=== PATIENT | male | born 1975 | race Two or more races ===

== ENCOUNTER 2017-10-28 14:05 | Emergency (ER) | payer MEDICAID ==
[~2017-10-28] VITALS: Ht 165.1 cm; Wt 68.0 kg
[~2017-10-28 14:05] MED LIST: FUROSEMIDE20 M1 ORAL; INSULIN PUMP
[2017-10-28 14:11] VITALS: BP 110/73
--- NOTE | 2017-10-28 14:14 | Emergency Room Report ---
History of Present Illness General Chief Complaint: Dyspnea/Respdistress Source: EMS Present Illness HPI Patient's 42-year-old male brought in by EMS after increased difficulty breathing. Patient recently been seen and treated at [facility] for fluid in his lungs as well as his abdomen. The patient was noted to have some evidence of infection and was currently started on some medication for pulmonary hypertension. Patient has had a pump placed the patient does not recall what medications he is currently taking. The patient presented for increased dizziness. Allergies: Coded Allergies: No Known Allergies (Unverified , 10/28/17) Patient History Reviewed Nursing Documentation: PMH: Agreed; PSxH: Agreed Nursing Documentation-PMH Past Medical History: No History, Except For Hx Cardiac Problems: Yes Hx Hypertension: Yes Hx Diabetes: Yes - 1 Review of Systems All Other Systems: negative except mentioned in HPI Physical Exam Vital Signs Date Time Temp Pulse Resp B/P (MAP) Pulse Ox O2 Delivery O2 Flow Rate FiO2 10/28/17 14:01 120 20 105/69 99 Room Air Sp02 EP Interpretation: reviewed, normal General Appearance: normal inspection, well appearing, no apparent distress, alert, Chronically Ill Head: atraumatic ENT: normal ENT inspection, hearing grossly normal, normal voice Neck: normal inspection, full range of motion, supple, no bony tend Respiratory: normal inspection, no respiratory distress, no retraction, no wheezing Cardiovascular #1: no edema, tachycardia Gastrointestinal: normal inspection, normal bowel sounds, non tender, soft, no guarding, no hernia Genitourinary: no CVA tenderness Musculoskeletal: normal inspection, back normal, normal range of motion Neurologic: normal inspection, alert, oriented x3, responsive, purchasing agent III-XII nml as tested, speech normal Psychiatric: normal inspection, judgement/insight normal, mood/affect normal Skin: normal inspection, normal color, no rash Medical Decision Making Diagnostic Impression: Primary Impression: Dyspnea Additional Impression: Pulmonary hypertension ER Course Patient presented for shortness of breath. Differential included but was not limited to anemia, pneumonia, pneumothorax, myocardial infarction, pericardial effusion, congestive heart failure, acidosis. Because of complexity of patient' s case laboratory testing and imaging studies were ordered.Patient was noted to have cardiomegaly on chest x-ray. The patient was noted to have adequate oxygen saturation. His blood pressure. Be normal. Patient was noted to be somewhat tachycardic. The patient's niece subsequently presented to the hospital and stated the patient was taking Viagra as well as chief other medications for pulmonary hypertension in addition to diuretics. The patient stated that he felt better wanted to leave the hospital. The patient was advised risk benefits alternatives of leaving AGAINST MEDICAL ADVICE and he indicated understanding and all questions are answered patient still continued want to leave and signed AGAINST MEDICAL ADVICE. Despite risks including but not limited to disability and worsening of current lifestyle. The patient is advised that he was still tachycardic. He was advised that he could return at any time Labs Test 10/28/17 14:41 10/28/17 14:52 White Blood Count 7.7 K/UL (4.8-10.8) Red Blood Count 4.40 M/UL (4.70-6.10) Hemoglobin 13.4 G/DL (14.2-18.0) Hematocrit 40.6 % (42.0-52.0) Mean Corpuscular Volume 92 FL (80-99) Mean Corpuscular Hemoglobin 30.4 PG (27.0-31.0) Mean Corpuscular Hemoglobin Concent 32.9 G/DL (32.0-36.0) Red Cell Distribution Width 15.3 % (11.6-14.8) Platelet Count 211 K/UL (150-450) Mean Platelet Volume 8.2 FL (6.5-10.1) Neutrophils (%) (Auto) 77.1 % (45.0-75.0) Lymphocytes (%) (Auto) 12.7 % (20.0-45.0) Monocytes (%) (Auto) 6.9 % (1.0-10.0) Eosinophils (%) (Auto) 2.0 % (0.0-3.0) Basophils (%) (Auto) 1.3 % (0.0-2.0) Urine Color Pale yellow Urine Appearance Clear Urine pH 8 (4.5-8.0) Urine Specific [place] 1.010 (1.005-1.035) Urine Protein 3+ (NEGATIVE) Urine Glucose (UA) Negative (NEGATIVE) Urine Ketones Negative (NEGATIVE) Urine Occult Blood 2+ (NEGATIVE) Urine Nitrite Negative (NEGATIVE) Urine Bilirubin Negative (NEGATIVE) Urine Urobilinogen Normal MG/DL (0.0-1.0) Urine Leukocyte Esterase Negative (NEGATIVE) Urine RBC 0-2 /HPF (0 - 0) Urine WBC 0 /HPF (0 - 0) Urine Squamous Epithelial Cells None /LPF (NONE/OCC) Urine Bacteria Few /HPF (NONE) Sodium Level 139 MMOL/L (136-145) Potassium Level 3.3 MMOL/L (3.5-5.1) Chloride Level 101 MMOL/L (98-107) Carbon Dioxide Level 27 MMOL/L (21-32) Anion Gap 12 mmol/L (5-15) Blood Urea Nitrogen 19 mg/dL (7-18) Creatinine 1.2 MG/DL (0.55-1.30) Estimat Glomerular Filtration Rate > 60 mL/min (>60) Glucose Level 136 MG/DL (74-106) Lactic Acid Level 2.50 mmol/L (0.66-2.22) Calcium Level 8.7 MG/DL (8.5-10.1) Phosphorus Level 4.7 MG/DL (2.5-4.9) Magnesium Level 2.2 MG/DL (1.8-2.4) Total Bilirubin 0.9 MG/DL (0.2-1.0) Aspartate Amino Transf (AST/SGOT) 19 U/L (15-37) Alanine Aminotransferase (ALT/SGPT) 19 U/L (12-78) Alkaline Phosphatase 109 U/L (46-116) Total Creatine Kinase 47 U/L (26-308) Creatine Kinase MB 0.7 NG/ML (0.0-3.6) Creatine Kinase MB Relative Index 1.4 Troponin I 0.010 ng/mL (0.000-0.056) Pro-B-Type Natriuretic Peptide 1942 pg/mL (0-125) Total Protein 8.9 G/DL (6.4-8.2) Albumin 3.6 G/DL (3.4-5.0) Globulin 5.3 g/dL Albumin/Globulin Ratio 0.7 (1.0-2.7) Arterial Blood pH 7.440 (7.350-7.450) Arterial Blood Partial Pressure CO2 40.2 mmHg (35.0-45.0) Arterial Blood Partial Pressure O2 74.1 mmHg (75.0-100.0) Arterial Blood HCO3 26.9 mmol/L (22.0-26.0) Arterial Blood Oxygen Saturation 94.7 % (92.0-98.0) Arterial Blood Base Excess 2.7 Alhaji Test Positive EKG Diagnostic Results Rate: tachycardiac Rhythm: other - aflutter 118 ST Segments: no acute changes Last Vital Signs Date Time Temp Pulse Resp B/P (MAP) Pulse Ox O2 Delivery O2 Flow Rate FiO2 10/28/17 14:01 120 20 105/69 99 Room Air Status: improved Disposition: ADMITTED INPATIENT Condition: Serious Herson Matthews Oct 28, 2017 14:14
[2017-10-28] MEDS ORDERED: Albuterol/Ipratropium 3ml neb HHN ONE (14:15)
[2017-10-28 15:03] LABS: APPEARANCE,URINE CLEAR; BASOPHILS % (AUTO) 1.3 % (0.0-2.0); BILIRUBIN, URINE NEGATIVE (NEGATIVE); COLOR,URINE PALE YELLOW; GLUCOSE, URINE (UA) NEGATIVE (NEGATIVE); HEMATOCRIT 40.6 % (42.0-52.0); HEMOGLOBIN 13.4 G/DL (14.2-18.0); KETONES,URINE NEGATIVE (NEGATIVE); LEUKOCYTE ESTERASE ,URINE NEGATIVE (NEGATIVE); LYMPHOCYTES % (AUTO) 12.7 % (20.0-45.0); MEAN CORPUSCULAR VOLUME 92 FL (80-99); MONOCYTES % (AUTO) 6.9 % (1.0-10.0); NEUTROPHILS % (AUTO) 77.1 % (45.0-75.0); NITRITE,URINE NEGATIVE (NEGATIVE); PH,URINE 8 (4.5-8.0); PLATELET COUNT 211 K/UL (150-450); PROTEIN,URINE 3+ (NEGATIVE); RED CELL DISTRIBUTION WIDTH 15.3 % (11.6-14.8); UROBILINOGEN,URINE NORMAL MG/DL (0.0-1.0); WHITE BLOOD COUNT 7.7 K/UL (4.8-10.8)
[2017-10-28 15:09] LABS: ANION GAP 12 mmol/L (5-15); BLOOD UREA NITROGEN 19 mg/dL (7-18); CALCIUM 8.7 MG/DL (8.5-10.1); CARBON DIOXIDE 27 MMOL/L (21-32); CHLORIDE 101 MMOL/L (98-107); CREATININE 1.2 MG/DL (0.55-1.30); POTASSIUM 3.3 MMOL/L (3.5-5.1); SODIUM 139 MMOL/L (136-145)
[2017-10-28 15:24] LABS: ALANINE AMINOTRANSFERASE 19 U/L (12-78); ALBUMIN 3.6 G/DL (3.4-5.0); ALBUMIN/GLOBULIN RATIO 0.7 (1.0-2.7); ALKALINE PHOSPHATASE 109 U/L (46-116); ASPARTATE AMINO TRANSFERASE 19 U/L (15-37); BILIRUBIN,TOTAL 0.9 MG/DL (0.2-1.0); CKMB 0.7 NG/ML (0.0-3.6); CREATINE KINASE 47 U/L (26-308); PHOSPHORUS 4.7 MG/DL (2.5-4.9)
[2017-10-28] MEDS ORDERED: XARELTO10 MG ORAL (15:38)
[2017-10-28] MEDS ORDERED: METOPROLOL SUCC25 MG ORAL (15:38)
[2017-10-28] MEDS ORDERED: SILDENAFIL20 MG ORAL (15:38)
[2017-10-28] MEDS ORDERED: REMODULIN IJ (15:38)
--- NOTE | 2017-10-28 17:00 | Diagnostic Imaging Report ---
Indication: Shortness of breath Technique: One view of the chest Comparison: none Findings: Heart is massively enlarged. There may be a small amount pleural fluid on the left. There is equivocal pulmonary venous congestion. No focal airspace consolidation Impression: Massive cardiomegaly Equivocal mild pulmonary venous congestion
[2017-10-28 17:13] VITALS: BP 110/73
--- NOTE | 2017-10-29 17:44 | Cardiology Report ---
APPROVED REPORT EKG Measurement Heart [id number] P162 [id number] Suspect arm lead reversal, interpretation assumes no reversal Atrial flutter with 2:1 AV conduction Lateral infarct, age undetermined Abnormal ECG
== END 2017-10-28 17:14 | disposition left against medical advice (07) ==
LOC: EDBD 14:05 → EMR 16:20 → CANBEDREQ 16:48 → EMR 17:14
DX: R06.00 Dyspnea, unspecified (principal); I10 Essential (primary) hypertension; E11.9 Type 2 diabetes mellitus without complications
CPT/HCPCS: 36415; 36600; 71045; 80053; 81003; 82550; 82553; 82803; 83605; 83735; 83880; 84100; 84484; 85025; 87040; 93005; 94640; 94664; 99284; J7620

== ENCOUNTER 2017-11-23 20:48 | Emergency (ER) | payer MEDICAID ==
[~2017-11-23] VITALS: Ht 167.6 cm; Wt 68.0 kg
[~2017-11-23 20:48] MED LIST changes: +METOPROLOL SUCC25 MG ORAL; +REMODULIN IJ; +SILDENAFIL20 MG ORAL; +XARELTO10 MG ORAL
[2017-11-23] MEDS ORDERED: HYDROmorphone 1mg/ml Carpuject IM ONE (21:45)
[2017-11-23 23:30] VITALS: BP 133/70
[2017-11-23 23:37] VITALS: BP 133/70
[2017-11-23] MEDS ORDERED: HYDROCODON-ACE1 EA15 ORAL (23:37)
--- NOTE | 2017-11-23 23:38 | Emergency Room Report ---
History of Present Illness General Chief Complaint: General Complaint Source: Patient, Family Member Present Illness HPI Is a 42-year-old male with history of A. fib on Xarelto. Also history of pulmonary hypertension. He presents with chief complaint of right upper arm pain. He has been gaining subcutaneous injection on the right arm for medication. His been hurting him in one to remove the needle, it was bleeding. Now swollen. Pain is 9 out of 10. Worse with movement. No nausea no vomiting. Denies any other complaint. Allergies: Coded Allergies: No Known Allergies (Unverified , 10/28/17) Patient History Past Medical History: see triage record, old chart reviewed Past Surgical History: other Pertinent Family History: none Social History: Denies: drug use Immunizations: other Reviewed Nursing Documentation: PMH: Agreed; PSxH: Agreed Nursing Documentation-PMH Hx Cardiac Problems: Yes Hx Hypertension: Yes Hx Diabetes: Yes - 1 Review of Systems Eye: Denies: eye pain, blurred vision ENT: Denies: ear pain, nose congestion, throat swelling Respiratory: Denies: cough, shortness of breath Cardiovascular: Denies: chest pain, palpitations Gastrointestinal: Denies: abdominal pain, diarrhea, nausea, vomiting Musculoskeletal: Reports: muscle pain; Denies: back pain, joint pain Skin: Denies: rash Neurological: Denies: headache, numbness Endocrine: Denies: increased thirst, increased urine Hematologic/Lymphatic: Denies: easy bruising All Other Systems: negative except mentioned in HPI Physical Exam Vital Signs Date Time Temp Pulse Resp B/P (MAP) Pulse Ox O2 Delivery O2 Flow Rate FiO2 11/23/17 21:11 98.1 98 16 138/75 93 Room Air 98.1 vitals normal Sp02 EP Interpretation: reviewed, normal General Appearance: well appearing, no apparent distress, alert Head: normocephalic, atraumatic Eyes: bilateral eye PERRL, bilateral eye EOMI ENT: hearing grossly normal, normal pharynx Neck: full range of motion, supple, no meningismus Respiratory: chest non-tender, lungs clear, normal breath sounds Cardiovascular #1: regular rate, rhythm, no murmur Gastrointestinal: normal bowel sounds, non tender, no mass, no organomegaly, no bruit, non-distended Musculoskeletal: back normal, gait/station normal, normal range of motion, other - Right upper arm: He has a puncture elena that is no longer bleeding. He has edema and ecchymosis to the tricep area. Tender to palpation. No redness or warmth. Full range of motion of the shoulder and elbow. Neurologic: alert, oriented x3 Psychiatric: mood/affect normal Skin: warm/dry Medical Decision Making Diagnostic Impression: Primary Impression: Traumatic hematoma of right upper arm Qualified Codes: S40.021A - Contusion of right upper arm, initial encounter ER Course Patient with hematoma to the right upper extremity. No DVT. Most likely secondary to him being on blood thinner. Better after pain medication. No evidence of infection at this moment in time. We'll discharge home. CT/MRI/US Diagnostic Results CT/MRI/US Diagnostic Results : Imaging Test Ordered: ultrasound right upper extremity Impression negative per hand folder Last Vital Signs Date Time Temp Pulse Resp B/P (MAP) Pulse Ox O2 Delivery O2 Flow Rate FiO2 11/23/17 21:55 98.1 11/23/17 21:11 98 16 138/75 93 Room Air Status: improved Disposition: HOME, SELF-CARE Condition: Stable Scripts Hydrocodone/Acetaminophen 5-325* (HYDROCODONE/ACETAMINOPHEN 5-325*) 1 Each Tablet 1 TAB ORAL Q6H PRN for For Pain, #20 TAB 0 Refills Prov: CHARLIE TORO M.D. 11/23/17 Referrals: NOT CHOSEN IPA/,REFERRING (PCP) Additional Instructions: Follow-up with your DrDeneen in 7 days. Ice pack to the area. Return if worse. CHARLIE TORO M.D. Nov 23, 2017 23:38
== END 2017-11-23 23:37 | disposition home or self-care (01) ==
LOC: EMR 21:26
DX: S40.021A Contusion of right upper arm, initial encounter (principal); I10 Essential (primary) hypertension; E10.9 Type 1 diabetes mellitus without complications; Z79.01 Long term (current) use of anticoagulants; X58.XXXA Exposure to other specified factors, initial encounter
CPT/HCPCS: 93971; 96372; 99284